=== PATIENT | female | born 1960 | race African-American/Black ===

== ENCOUNTER → 2016-07-04 | Outpatient (CLI) | payer OTHER ==
[~2016-07-04] MED LIST: ALDACTONE100 MG PO; FUROSEMIDE40 MG PO; LIPITOR20 MG PO
--- NOTE | ~2016-07-04 | MY11 ---
[facility] A Service [facility] RADIOLOGY TEXT RESULTS PATIENT: PITER CARD LOCATION: [facility] : 60 UNIT #: [id number] AGE: [address]: Helen Cordova MD SEX: F ORDER DR: [id number] [facility] [address] [place], [place] [address] [id number] O MR#: [id number] Acc #: [id number] NAME: PITER CARD : 1960 SEX: F STUDY DATE/TIME: 07/04/2016 7:50 UNIT: [facility] ROOM: STUDY DESCRIPTION: MY Mammogram Screening Dig Ezra Attending Physician: Helen Cordova M.D. Referring Physician: Helen Cordova M.D. Ordering Physician: Helen Cordova M.D. Primary Care Physician: Rea Huynh M.D. MEDICAL IMAGING REPORT This report is preliminary unless electronic signature is present EXAM Digital screening mammography with CAD. HISTORY Routine screening. TECHNIQUE Bilateral CC and MLO views obtained on a digital mammography unit. FDA-approved CAD device utilized. COMPARISON STUDIES 10/10/2012 FINDINGS Scattered fibroglandular densities. No dominant mass. Loosely grouped microcalcifications in the central right breast behind the nipple are not seen on the prior study. IMPRESSION Incomplete mammogram. Recommend right diagnostic mammogram to evaluate apparently new microcalcifications in the central right breast. Patients over the age of 40 are entered into a reminder system with target due date for the next mammogram. A result letter will also be sent to the patient. BIRADS: 0 Incomplete; need additional imaging evaluation and/or prior mammograms for comparison. Dictated by... [facility] A Service [facility] RADIOLOGY TEXT RESULTS PATIENT: PITER CARD LOCATION: [facility] : 60 UNIT #: [id number] AGE: [address]: Helen Cordova MD SEX: F ORDER DR: Hever E. Derrick, M.D. THIS IS AN ELECTRONICALLY VERIFIED REPORT Hever Meza M.D. at 07/05/2016 7:08 AM ARIS/adolph TD: 07/04/2016 15:53 JOB #: [id number] MEDICAL IMAGING REPORT COPY
== END | disposition home or self-care (01) ==
LOC: CWCC 07:31
DX: Z12.31 Encounter for screening mammogram for malignant neoplasm of breast (principal); R92.8 Other abnormal and inconclusive findings on diagnostic imaging of breast
CPT/HCPCS: G0202

== ENCOUNTER → 2016-07-18 | Outpatient (CLI) | payer OTHER ==
--- NOTE | ~2016-07-18 | MY8 ---
[facility] A Service of [facility] & [facility] RADIOLOGY TEXT RESULTS PATIENT: PITER CARD LOCATION: [facility] : 60 UNIT #: [id number] AGE: [address]: Helen Cordova MD SEX: F ORDER DR: [id number] [facility] [address] [place], [place] [address] [id number] O MR#: [id number] Acc #: [id number] NAME: PITER CARD : 1960 SEX: F STUDY DATE/TIME: 07/18/2016 12:20 UNIT: [facility] ROOM: STUDY DESCRIPTION: MY Mammogram Dx Dig Rt Attending Physician: Helen Cordova M.D. Ordering Physician: Helen Cordova M.D. Primary Care Physician: Helen Cordova M.D. MEDICAL IMAGING REPORT This report is preliminary unless electronic signature is present REVISED REPORT SEE ADDENDUM EXAM Additional views of the right breast and targeted right breast ultrasound 07/18/2016 INDICATIONS 55-year-old female recalled for additional views of the right breast for microcalcifications that were new on a recent screening study performed 07/04/2016. The patient also complained of discomfort in the lower outer hemisphere right breast. Ultrasound was performed for further assessment. COMPARISON Mammograms 07/04/2016, 10/10/2012, 04/27/2010. FINDINGS MAMMOGRAPHIC: On the additional magnification views and the true lateral view, the new grouping of microcalcifications is located centrally behind the nipple by a distance of about 5 cm. These are best demonstrated on the CC and true lateral views. The calcifications are faint. Some of the calcifications are more rounded and benign in appearance while others are more faint and slightly pleomorphic. Given these are new and the patient is postmenopausal and they cannot be clearly characterized as benign, stereotactic biopsy is recommended for further assessment. ULTRASOUND FINDINGS RIGHT BREAST: The patient was initially scanned independently by the technologist and the rescanned in my presence. Imaging of the area of patient tenderness and concern in the lower outer hemisphere is negative. There is no cystic or solid mass or persistent shadowing abnormality. Imaging findings are concordant with mammography. [facility] A Service of [facility] & [facility] RADIOLOGY TEXT RESULTS PATIENT: PITER CARD LOCATION: [facility] : 60 UNIT #: [id number] AGE: [address]: Helen Cordova MD SEX: F ORDER DR: IMPRESSION 1. Additional views of the right breast are abnormal demonstrating indeterminate microcalcifications in the central right breast that are new. These warrant further evaluation with stereotactic biopsy. Findings and recommendations for biopsy have been discussed with the patient here in the department. She has voiced understanding and agreement. I have also called the office of Dr. Helen Cordova regarding the recommendations for biopsy. Dr. Cordova was not available to take my call at the time of this dictation. I have marked this a STAT dictation and I am awaiting a return phone call from Dr. Cordova. I did speak with Pao in Dr. Cordova/s office. She is already in the process of scheduling the patient for the biopsy. The breast occasional caregiver office is closed today. 2. Targeted ultrasound of the area of patient tenderness in the lower outer hemisphere right breast is negative and concordant with mammography. Patients over the age of 40 are entered into a reminder system with target due date for the next mammogram. A result letter will also be sent to the patient. BIRADS: 4 Suspicious abnormality - Biopsy should be considered STAT * RESULT Dictated by... Karthikeyan Morgan M.D. THIS IS AN ELECTRONICALLY VERIFIED REPORT Karthikeyan Morgan M.D. at 07/18/2016 1:52 PM RUTH/vito TD: 07/18/2016 13:22 JOB #: [id number] ADDENDUM To additional views right breast 07/18/2016 ADDENDUM Findings regarding the recommendation for stereotactic biopsy of the calcifications in the right breast have now been personally discussed by me by telephone with Dr. Helen Cordova at approximately 13:19 hours 07/18/2016. STS. [facility] A Service of [facility] & [facility] RADIOLOGY TEXT RESULTS PATIENT: PITER CARD LOCATION: [facility] : 60 UNIT #: [id number] AGE: [address]: Helen Cordova MD SEX: F ORDER DR: Dictated by... Karthikeyan Morgan M.D. THIS IS AN ELECTRONICALLY VERIFIED REPORT Karthikeyan Morgan M.D. at 07/19/2016 7:27 AM RUTH/luis TD: 07/18/2016 13:27 JOB #: [id number] CC: Teodora/marquez Please Delete MEDICAL IMAGING REPORT COPY
--- NOTE | ~2016-07-18 | US24 ---
[facility] A Service of [facility] & [facility] RADIOLOGY TEXT RESULTS PATIENT: PITER CARD LOCATION: [facility] : 60 UNIT #: [id number] AGE: [address]: Helen Cordova MD SEX: F ORDER DR: [id number] [facility] [address] [place], [place] [address] [id number] O MR#: [id number] Acc #: [id number] NAME: PITER CARD : 1960 SEX: F STUDY DATE/TIME: 07/18/2016 12:48 UNIT: [facility] ROOM: STUDY DESCRIPTION: US Breast Unilateral Attending Physician: Helen Cordova M.D. Ordering Physician: Helen Cordova M.D. Primary Care Physician: Helen Cordova M.D. MEDICAL IMAGING REPORT This report is preliminary unless electronic signature is present EXAM Targeted ultrasound lower outer hemisphere right breast 07/18/2016 FINDINGS Please see Additional views right breast 07/18/2016 for results. BIRADS: 4 Suspicious abnormality - Biopsy should be considered STAT * RESULT Dictated by... Karthikeyan Morgan M.D. THIS IS AN ELECTRONICALLY VERIFIED REPORT Karthikeyan Morgan M.D. at 07/19/2016 7:27 AM Efrain TD: 07/18/2016 13:34 JOB #: [id number] MEDICAL IMAGING REPORT COPY
== END | disposition home or self-care (01) ==
LOC: CMAM 12:01
DX: R92.8 Other abnormal and inconclusive findings on diagnostic imaging of breast (principal); R92.0 Mammographic microcalcification found on diagnostic imaging of breast
CPT/HCPCS: 76641; G0206

== ENCOUNTER → 2016-08-03 | Outpatient (CLI) | payer OTHER ==
--- NOTE | ~2016-08-03 | MY22 ---
[facility] A Service of [facility] & [facility] RADIOLOGY TEXT RESULTS PATIENT: PITER CARD LOCATION: [facility] : 60 UNIT #: [id number] AGE: [address]: Helen Cordova MD SEX: F ORDER DR: [id number] [facility] [address] [place], [place] [address] [id number] O MR#: [id number] Acc #: [id number] NAME: PITER CARD : 1960 SEX: F STUDY DATE/TIME: 08/03/2016 10:36 UNIT: [facility] ROOM: STUDY DESCRIPTION: MY BX Breast 1st Lesion Stereo Attending Physician: Helen Cordova M.D. Referring Physician: Helen Cordova M.D. Ordering Physician: Helen Cordova M.D. Primary Care Physician: Helen Cordova M.D. MEDICAL IMAGING REPORT This report is preliminary unless electronic signature is present REVISED REPORT See addendum EXAM Stereotactic right breast biopsy on 08/03 INDICATIONS Abnormal mammogram demonstrating new indeterminate calcifications in the right breast. PROCEDURE Informed stent was obtained and time-out was performed. The patient's prior imaging was reviewed. She was then placed in craniocaudal compression on the stereotactic table. The calcifications in the right breast were localized stereotactically. Skin was cleaned with ChloraPrep. 1% lidocaine without epinephrine used for local anesthesia in the skin and deep tissues. Small skin incision was made. 9 gauge Eviva biopsy needle was advanced and the pre fire position. Pre fire images demonstrated appropriate needle heading. Then, the needle was fired into biopsy position. Post-fire images also demonstrate appropriate needle heading. Then, multiple 9-gauge vacuum-assisted cores were obtained in a concentric fashion at target depth. Multiple calcifications are seen within the specimens on the specimen radiograph indicating adequate biopsy. 1% lidocaine with epinephrine was infused through the needle during the biopsies. A marking clip was left in place and is confirmed on postprocedure images in the appropriate position. Postprocedure images also demonstrate a small hematoma in the biopsy bed measuring about 13 mm in diameter. This is not an unexpected finding. No immediate complications. Hemostasis was achieved with direct compression. IMPRESSION Successful stereotactic biopsy of calcifications in the right breast. Multiple calcifications are seen in the biopsy specimens. Marking clip in [facility] A Service of [facility] & [facility] RADIOLOGY TEXT RESULTS PATIENT: PITER CARD LOCATION: [facility] : 60 UNIT #: [id number] AGE: [address]: Helen Cordova MD SEX: F ORDER DR: the appropriate location on postprocedure mammogram. No immediate complication. Dictated by... Randal Alba Jr., M.D. THIS IS AN ELECTRONICALLY VERIFIED REPORT Randal Alba Jr., M.D. at 08/03/2016 2:49 PM Mark TD: 08/03/2016 12:57 JOB #: [id number] EXAM Stereotactic breast biopsy. DATE OF EXAM 08/03/2016 ADDENDUM Pathology results have been obtained. No malignancy is identified. There is some apocrine metaplasia with focal duct stasis and dilatation and periductal chronic inflammation with scattered calcifications suggesting calcium oxylate. Imaging results and pathology results are concordant. Consider 6-month followup right breast mammogram to document postprocedure appearance of the breast. Dictated by... Randal Alba Jr., M.D. THIS IS AN ELECTRONICALLY VERIFIED REPORT Randal Alba Jr., M.D. at 08/10/2016 12:31 PM Sukhdeep TD: 08/09/2016 15:39 JOB #: [id number] CC: Sovera/invision Please Delete MEDICAL IMAGING REPORT Page 1 of 1 COPY
== END | disposition home or self-care (01) ==
LOC: CWCC 09:44
DX: N60.81 Other benign mammary dysplasias of right breast (principal); R92.1 Mammographic calcification found on diagnostic imaging of breast; N64.89 Other specified disorders of breast
CPT/HCPCS: 88305; G0204

== ENCOUNTER → 2016-11-10 | Day surgery (SDC) | payer OTHER ==
--- NOTE | ~2016-11-10 | OR ---
Unit #: [id number] #: [id number] Patient: PITER CARD [id number] [address] [place], [place] [address] [id number] O MR#: [id number] NAME: PITER CARD ROOM: Date of Procedure: 11/10/2016 Admission Date: 11/10/2016 Surgeon: Dakotah Adams M.D. : 1960 Attending Physician: Dakotah Adams M.D. Primary Care Physician: Helen Cordova M.D. OPERATIVE REPORT PROCEDURE PERFORMED Colonoscopy to anastomosis with snare polypectomy INDICATIONS The patient with history of multiple falls in the past status post right hemicolectomy for large polyps in the past, undergoing evaluation with colonoscopy. MEDICATIONS Monitored anesthesia. POSTOPERATIVE FINDINGS 1. Colonoscopy completed to anastomosis on the right. 2. Good prep. 3. Three small polyps in the rectosigmoid area, snared and sent for histopathology. 4. Rest of the colon exam was normal. PLAN Repeat colonoscopy in 3 years. Follow up on pathology report. DESCRIPTION OF PROCEDURE The patient was explained of the procedure, risks, and benefits along with risks and benefits of anesthesia. She was brought to endoscopy room. anesthesia was given. Rectal exam was done, which was normal. Colonoscope was lubricated, passed up the rectum, advanced under direct vision all the way to the cecum to anastomosis. Anastomosis was intact. Colonic mucosa was good. Bowel prep was good. Three small polyps in the rectosigmoid area were snared and sent for histopathology. I retroflexed in the rectum. Small hemorrhoids noted. Gently, the scope was pulled out. She tolerated it well. No major complications were seen. Dictated by... Gurpreet Coffman/fabi TD: 11/10/2016 10:42 JOB #: [id number] Unit #: [id number] #: [id number] Patient: PITER CARD OPERATIVE REPORT Page 1 of 1 X Dakotah Adams MD PROCEDURE OPERATIVE NOTE
== END | disposition home or self-care (01) ==
LOC: COPS 07:32
DX: Z12.11 Encounter for screening for malignant neoplasm of colon (principal); K63.5 Polyp of colon; K64.9 Unspecified hemorrhoids; K74.60 Unspecified cirrhosis of liver; I10 Essential (primary) hypertension; E78.5 Hyperlipidemia, unspecified; F17.210 Nicotine dependence, cigarettes, uncomplicated; Z88.0 Allergy status to penicillin; Z91.040 Latex allergy status; Z91.81 History of falling; Z90.49 Acquired absence of other specified parts of digestive tract; Z86.010 Personal history of colon polyps; Z79.899 Other long term (current) drug therapy
CPT/HCPCS: 88305

== ENCOUNTER → 2016-11-22 | Outpatient (CLI) | payer OTHER ==
--- NOTE | ~2016-11-22 | CR282 ---
[facility] A Service of [facility] & [facility] RADIOLOGY TEXT RESULTS PATIENT: PITER CARD LOCATION: [facility] : 60 UNIT #: [id number] AGE: [address]: Jeniffer Fernandez APRN SEX: F ORDER DR: [id number] [facility] [address] [place], [place] [address] [id number] O MR#: [id number] Acc #: [id number] NAME: PITER CARD : 1960 SEX: F STUDY DATE/TIME: 11/22/2016 10:13 UNIT: [facility] ROOM: STUDY DESCRIPTION: CR Wrist Min 3 View Rt Attending Physician: Jeniffer Fernandez Aprn Referring Physician: Jeniffer Fernandez Aprn Ordering Physician: Jeniffer Fernandez Aprn Primary Care Physician: Helen Cordova M.D. MEDICAL IMAGING REPORT This report is preliminary unless electronic signature is present EXAM Right wrist 11/22/2016 INDICATION Wrist pain after fall yesterday. FINDINGS Three views of the wrist were obtained. No fracture or malalignment is seen. There is some degenerative cystic change in the lunate. There is an old fracture of the tip of the ulnar styloid versus an old ununited apophysis. Wrist is otherwise negative. IMPRESSION No acute fracture or malalignment. Chronic changes in the lunate and at the tip of the ulnar styloid. Dictated by... Randal Alba Jr., M.D. THIS IS AN ELECTRONICALLY VERIFIED REPORT Randal Alba Jr., M.D. at 11/23/2016 5:04 PM ZACHARIAH/vito TD: 11/23/2016 12:45 JOB #: [id number] MEDICAL IMAGING REPORT Page 1 of 1 COPY
--- NOTE | ~2016-11-22 | CR142 ---
[facility] A Service of [facility] & [facility] RADIOLOGY TEXT RESULTS PATIENT: PITER CARD LOCATION: [facility] : 60 UNIT #: [id number] AGE: [address]: Jeniffer Fernandez APRN SEX: F ORDER DR: [id number] [facility] [address] [place], [place] [address] [id number] O MR#: [id number] Acc #: [id number] NAME: PITER CARD : 1960 SEX: F STUDY DATE/TIME: 11/22/2016 10:12 UNIT: [facility] ROOM: STUDY DESCRIPTION: CR Hand Min 3 Views Rt Attending Physician: Jeniffer Fernandez Aprn Referring Physician: Jeniffer Fernandez Aprn Ordering Physician: Jeniffer Fernandez Aprn Primary Care Physician: Helen Cordova M.D. MEDICAL IMAGING REPORT This report is preliminary unless electronic signature is present EXAM Right hand, 3 views COMPARISON Three views of the right wrist on the same date. INDICATIONS 55-year-old female with right hand pain and swelling after falling yesterday. FINDINGS Tiny chronic ossicle measuring up to approximately 1-2 mm is seen at the ulnar styloid. Bones are anatomically aligned. No evidence of acute fracture. No significant degenerative change. IMPRESSION No acute fracture, dislocation or significant degenerative change. Dictated by... Piotr Romeo M.D. THIS IS AN ELECTRONICALLY VERIFIED REPORT Piotr Rmoeo M.D. at 11/23/2016 7:28 AM PRICE/leni TD: 11/23/2016 02:35 JOB #: [id number] MEDICAL IMAGING REPORT Page 1 of 1 COPY
--- NOTE | ~2016-11-22 | CR181 ---
[facility] A Service of [facility] & [facility] RADIOLOGY TEXT RESULTS PATIENT: PITER CARD LOCATION: [facility] : 60 UNIT #: [id number] AGE: [address]: Jeniffer Fernandez APRN SEX: F ORDER DR: [id number] [facility] [address] [place], [place] [address] [id number] O MR#: [id number] Acc #: [id number] NAME: PITER CARD : 1960 SEX: F STUDY DATE/TIME: 11/22/2016 10:12 UNIT: [facility] ROOM: STUDY DESCRIPTION: CR Lumbar Spine 2 or 3 Views Attending Physician: Jeniffer Fernandez Aprn Referring Physician: Jeniffer Fernandez Aprn Ordering Physician: Jeniffer Fernandez Aprn Primary Care Physician: Helen Cordova M.D. MEDICAL IMAGING REPORT This report is preliminary unless electronic signature is present EXAM Lumbar spine series, dated 11/22/2016. COMPARISON CT of the abdomen and pelvis without contrast dated 02/22/2016. No dedicated lumbar spine studies. HISTORY Patient fell on 11/21/2016, with subsequent pain in the lower back. FINDINGS Three views of the lumbar spine were obtained. No acute displaced fracture or subluxation. Vertebral body and intervertebral disc heights are intact. No acute displaced fracture, subluxation or destructive bony mass. Pedicles are within normal limits. IMPRESSION No significant abnormality. Dictated by... Jolene Muller M.D. THIS IS AN ELECTRONICALLY VERIFIED REPORT Jolene Muller M.D. at 11/25/2016 7:45 PM CPR/jt TD: 11/22/2016 16:16 JOB #: [id number] MEDICAL IMAGING REPORT Page 1 of 1 COPY
== END | disposition home or self-care (01) ==
LOC: CRAD 09:58
DX: M25.531 Pain in right wrist (principal); M54.5 Low back pain
CPT/HCPCS: 72100; 73110; 73130